=== PATIENT | female | born 1985 | race American Indian/Alaskan Native ===

== ENCOUNTER 2021-09-17 13:43 | Outpatient (CLI) | payer BC ==
--- NOTE | 2021-09-17 17:08 | Ultrasound Report ---
US abdomen limited INDICATION / CLINICAL INFORMATION: K46.9. Left lower quadrant pain, Hernia COMPARISON: CT abdomen 02/07/2010. FINDINGS: Limited grayscale and color Doppler imaging within the left lower quadrant area of concern. The left ovary is seen superficially measuring 1.6 cm from the skin surface within the area of concer n. The left ovary measures 4.3 x 3.3 x 2.2 cm. Follicular changes are noted. Normal color Doppler blo od flow is identified. There is no evidence of hernia. IMPRESSION: 1. Left ovary is visualized superficially in the pelvis within the left lower quadrant area of concer n. 2. No evidence of hernia. Scribed by: Shilpi Winston RDMS, RVT Scribed: 09/17/2021 3:31 PM I have reviewed the images, agree with this report, and edited this report as needed. Signer Name: Dmitry Yang DO Signed: 09/17/2021 5:04 PM Workstation Name: [id number]
== END 2021-09-17 13:44 | disposition home or self-care (01) ==
LOC: US 13:43
PROVIDERS: ATTEND Obstetrics & Gynecology
DX: K46.9 Unspecified abdominal hernia without obstruction or gangrene (principal)
CPT/HCPCS: 76705

== ENCOUNTER 2021-10-11 13:40 | Outpatient (CLI) | payer BC ==
--- NOTE | 2021-10-11 16:27 | Cat Scan Report ---
CT PELVIS WITH CONTRAST INDICATION / CLINICAL INFORMATION: R10.32 LEFT LOWER QUADRANT PAIN 100 ML OMNI 300 . TECHNIQUE: Axial CT images were obtained through the pelvis after 100 cc Omnipaque [address] scans at this location are performed using CT dose reduction for ALARA by means of automated ex posure control. COMPARISON: 09/17/2021 and 02/07/2010 FINDINGS: BOWEL: No significant abnormality. APPENDIX: No significant abnormality. PERITONEUM: No free fluid. No free air. No fluid collection. LYMPH NODES: No significant adenopathy. ARTERIES: No significant abnormality. VEINS: No significant abnormality. URINARY BLADDER: No significant abnormality. REPRODUCTIVE ORGANS: The uterus and ovaries are unremarkable. As mentioned on previous abdominal ultr asound the left ovary is just deep to the abdominal rectus musculature. ADDITIONAL FINDINGS: None. SKELETAL SYSTEM: No significant abnormality. IMPRESSION: 1. No CT findings to explain symptomatology. Signer Name: Dmitry Yang DO Signed: 10/11/2021 4:22 PM Workstation Name: [id number]
== END 2021-10-11 13:41 | disposition home or self-care (01) ==
LOC: CT 13:40
PROVIDERS: ATTEND Surgery
DX: R10.32 Left lower quadrant pain (principal)
CPT/HCPCS: 72193; Q9967

== ENCOUNTER 2021-12-12 08:52 | Day surgery (SDC) | payer BC ==
--- NOTE | 2021-12-12 09:53 | Anesthesia Day of Surgery ---
Anesthesia Day of Surgery - Day of Surgery Patient Examined: Yes Patient H&P Reviewed: Yes Patient is NPO: Yes
--- NOTE | 2021-12-12 09:54 | Anesthesia Consultation ---
Anesthesia Consult and Med Hx Date of service: 12/12/21 - Airway Anesthetic Teeth Evaluation: Good ROM Head & Neck: Adequate Mental/Hyoid Distance: Adequate Mallampati Class: Class II Intubation Access Assessment: Good - Pre-Operative Health Status ASA Pre-Surgery Classification: ASA2 Proposed Anesthetic Plan: General - Pulmonary Hx Smoking: No (SMOKES MARIJUANA SOCIALLY) Hx Sleep Apnea: No - Cardiovascular System Hx Hypertension: No - Central Nervous System Hx Back Pain: Yes (NECK & BACK) Hx Psychiatric Problems: Yes (Anxiety/Depression) - Gastrointestinal Hx Gastroesophageal Reflux Disease: No - Hematic Hx Anemia: No Hx Sickle Cell Disease: No - Other Systems Hx Alcohol Use: No Hx Substance Use: Yes (MARIJUANA SOCIALLY) Hx Cancer: No Hx Obesity: No
[2021-12-12] MEDS ORDERED: MAGNESIUM OXIDE 400 MG TAB PO SCH (10:00)
[2021-12-12] MEDS ORDERED: ONDANSETRON 4 MG/2 ML INJ IV PRN (10:00)
[2021-12-12] MEDS ORDERED: ACETAMINOPHEN 500 MG TAB PO SCH (10:00)
[2021-12-12] MEDS ORDERED: MIDAZOLAM 2 MG/2 ML INJ IV NR (10:00)
[2021-12-12] MEDS ORDERED: LACTATED RINGERS 1,000 ML IV SCH (10:00)
[2021-12-12] MEDS ORDERED: CELECOXIB 200 MG CAP PO NR (10:00)
[2021-12-12] MEDS ORDERED: HYDROmorphone 1 MG/1 ML INJ IV PRN ×2 (10:00)
[2021-12-12] MEDS ORDERED: ROCURONIUM 50 MG/5 ML INJ IV ONE (10:48)
[2021-12-12] MEDS ORDERED: LIDOCAINE MPF (2%) 20 MG/1 ML VIAL 5 ML ONE (10:48)
[2021-12-12] MEDS ORDERED: ONDANSETRON 4 MG/2 ML INJ ONE (10:48)
[2021-12-12] MEDS ORDERED: HYDROmorphone 1 MG/1 ML INJ ONE (10:49)
[2021-12-12] MEDS ORDERED: propofoL 200 MG/20 ML VIAL IV ONE (10:49)
--- NOTE | 2021-12-12 11:00 | Short Stay Summary ---
Short Stay Documentation Date of service: 12/12/21 Narrative H&P: 36-year-old -0-0-2 with a history of chronic pelvic pain. The patient underwent an ultrasound with unremarkable findings. She is continued to have chronic episodes of pelvic pain that has been unresolved with conservative measures. The patient scheduled for laparoscopy for further evaluation. - History Principal diagnosis: Chronic pelvic pain Past Medical History: No medical history Past Surgical History: Social history: single - Allergies and Medications Current Medications: Allergies No Known Allergies Allergy (Unverified 12/05/21 11:04) Home Medications Medication Instructions Recorded Confirmed Last Taken Type No Known Home Medications [No 12/05/21 12/05/21 Unknown History Reported Home Medications] Active Medications Acetaminophen (Acetaminophen 500 Mg Tab) 1,000 mg PO ONCE@1000 ALDEN Stop: 12/12/21 19:00 Last Admin: 12/12/21 10:13 Dose: 1,000 mg Celecoxib (Celecoxib 200 Mg Cap) 400 mg PO PREOP NR Stop: 12/12/21 19:00 Last Admin: 12/12/21 10:13 Dose: 400 mg Hydromorphone HCl (Hydromorphone 1 Mg/1 Ml Inj) 0.25 mg IV Q10MIN PRN PRN Reason: Pain, Moderate (4-6) Stop: 12/12/21 17:00 Hydromorphone HCl (Hydromorphone 1 Mg/1 Ml Inj) 0.5 mg IV Q10MIN PRN PRN Reason: Pain , Severe (7-10) Stop: 12/12/21 17:00 Lactated Ringer's (Lactated Ringers) 1,000 mls @ 100 mls/hr IV DIRECT ALDEN Last Admin: 12/12/21 10:10 Dose: 100 mls/hr Magnesium Oxide (Magnesium Oxide 400 Mg Tab) 400 mg PO ONCE@1000 ALDEN Stop: 12/12/21 19:00 Last Admin: 12/12/21 10:13 Dose: 400 mg Methocarbamol (Methocarbamol 750 Mg Tab) 1,500 mg PO ONCE@1000 ALDEN Stop: 12/12/21 19:00 Last Admin: 12/12/21 10:13 Dose: 1,500 mg Midazolam HCl (Midazolam 2 Mg/2 Ml Inj) 2 mg IV PREOP NR Stop: 12/12/21 23:59 Last Admin: 12/12/21 10:18 Dose: 2 mg Ondansetron HCl (Ondansetron 4 Mg/2 Ml Inj) 4 mg IV ONCE PRN PRN Reason: Nausea And Vomiting Stop: 12/12/21 17:00 - Physical exam General appearance: no acute distress Integumentary: no rash HEENT: Atraumatic Lungs: Clear to auscultation Breasts: deferred Heart: Regular rate Gastrointestinal: normal Female Genitourinary: deferred Rectal Exam: deferred - Brief post op/procedure progress note Date of procedure: 12/12/21 Pre-op diagnosis: Chronic pelvic pain Post-op diagnosis: same Procedure: Laparoscopy Lysis of adhesions Anesthesia: FRANKA Surgeon: ORLANDO ANDERSON Estimated blood loss: minimal Pathology: none Condition: stable - Hospital course Hospital course: The patient was admitted the day of surgery underwent a laparoscopy lysis of adhesions. Please see operative note for details of surgery. Her postoperative course was uneventful. - Disposition Condition at discharge: Good Disposition: 01 HOME / SELF CARE / HOMELESS Short Stay Discharge Plan Activity: no restrictions Diet: regular Additional Instructions: Schedule follow-up with Dr. Anderson in 2 weeks
[2021-12-12] MEDS ORDERED: BUPIVACAINE/PF (0.5%) 5 MG/1 ML 30 ML VIAL INFILTRATI ONE ×2 (11:22→12:12)
[2021-12-12] MEDS ORDERED: SODIUM CHLORIDE 0.9% IRR 1,500 ML BOTTLE IR ONE (12:12)
[2021-12-12] MEDS ORDERED: dexAMETHasone 20 MG/5 ML VIAL ONE (12:21)
[2021-12-12] MEDS ORDERED: NEOSTIGMINE 10MG/10 ML INJ MDV ONE (12:22)
[2021-12-12] MEDS ORDERED: KETOROLAC 30 MG/1 ML INJ ONE (12:22)
[2021-12-12] MEDS ORDERED: GLYCOPYRROLATE 0.4 MG/2 ML INJ ONE (12:22)
[2021-12-12] MEDS ORDERED: LACTATED RINGERS 1,000 ML ONE (12:31)
--- NOTE | 2021-12-12 12:54 | Operative Report ---
Operative Report Operative Report: Date of surgery: December 12, 2021 Preoperative diagnosis: Chronic pelvic pain Postoperative diagnosis: Same as above; pelvic congestion Procedure: Laparoscopy; lysis of adhesion Surgeon: Dena Millan M.D. Anesthesia: General endotracheal anesthesia Estimated blood loss: Minimal Findings: Pelvic congestion syndrome; omental adhesions to the anterior abdominal wall Indication: 36-year-old -0-0-2 with a history of chronic pelvic pain. Procedure: The patient was taken to the operating room and given general endotracheal anesthesia without complication. The patient is prepped and draped in a normal sterile fashion. A bivalve speculum was placed in the patient's vagina and a single-tooth tenaculum was placed on the anterior lip of the cervix .A uterine acorn manipulator was placed, and the bivalve speculum was then removed. Attention was then turned to the patient's abdomen where a 5 mm infraumbilical skin incision was then made. A Veress needle was placed and peritoneal entry was verified water-filled syringe. Insufflation of the peritoneal cavity was performed with CO2 gas. A 5 mm trocar was placed and the laparoscope was then inserted. The patient was then placed in Trendelenburg. A 5 mm left lateral skin incision was then made. Under direct visualization a 5 mm trocar was then placed. General survey of the patient's abdomen revealed omental adhesions to the anterior abdominal wall. The uterus tubes and ovaries were normal in appearance. The ovaries appear to be polycystic. The patient also demonstrated evidence of pelvic congestion. The monopolar scissors were used to excise the omental adhesions. No endometriotic implants could be identified. The trocars were then removed. The pneumoperitoneum was then released. The 5 mm trocar laparoscope was then removed. The skin incisions were then closed with 4-0 Monocryl. The incisions were injected with quarter percent Marcaine. Dressings were applied to the incision. The vaginal instruments were then removed atraumatically. Then successfully extubated and taken to the recovery room. All sponge laps and needle counts were correct x2.
[2021-12-12 14:14] VITALS: BP 107/70
--- NOTE | 2021-12-12 14:19 | Post Anesthesia Evaluation ---
- Post Anesthesia Evaluation Patient Participated: Yes Airway Patent: Yes Stable Respiratory Function: Yes Nausea/Vomiting: No Temp > 96.8F: Yes Pain Manageable: Yes Adequeate Hydration: Yes Anesthesia Complications: No Block Receding Appropriately: Not Applicable Patient on Ventilator: No
== END 2021-12-12 14:00 | disposition home or self-care (01) ==
LOC: OR 08:52
PROVIDERS: ATTEND Obstetrics & Gynecology
DX: R10.2 Pelvic and perineal pain (principal); G89.29 Other chronic pain; K66.0 Peritoneal adhesions (postprocedural) (postinfection); Z79.899 Other long term (current) drug therapy; Z98.891 History of uterine scar from previous surgery; F32.9 Major depressive disorder, single episode, unspecified; F41.9 Anxiety disorder, unspecified; Z98.890 Other specified postprocedural states; Z87.442 Personal history of urinary calculi
CPT/HCPCS: 49329; 81025; J1100; J1170; J1815; J1885; J2250; J2405; J2704; J2710; J3490; J7120